=== PATIENT | male | born 1965 | race African-American/Black ===

== ENCOUNTER → 2021-02-20 | Outpatient (CLI) | payer MEDICARE | LOC: COL.RAD 11:59 | DX: N18.32 Chronic kidney disease, stage 3b (principal) ==

== ENCOUNTER 2021-03-21 14:18 | Observation (INO) | payer MEDICARE ==
[~2021-03-21] VITALS: Ht 182.9 cm; Wt 104.7 kg
[2021-03-21 15:27] LABS: BASO % 0.5 % (0.0-2.0); EOS # 0.2 K/mm3 (0.0-0.7); EOS % 2.8 % (0.0-4.0); GRAN # 4.3 K/mm3 (1.4-6.5); GRAN % 57.5 % (42.2-75.2); HEMATOCRIT 39.8 % (42.0-52.0); HEMOGLOBIN 13.4 g/dl (13.5-18.0); LYMPH # 2.3 K/mm3 (1.2-3.4); LYMPH % 29.9 % (20.0-51.0); MEAN CELL VOLUME 89 fl (80.0-100.0); MEAN CORPUSCULAR HEMOGLOBIN 30 pg (27-31); MEAN CORPUSCULAR HGB CONC 34 g/dl (33.0-37.0); MEAN PLATELET VOLUME 10.1 fl (7.4-10.4); MONO # 0.7 K/mm3 (0.1-0.6); MONO % 9.2 % (1.7-9.3); PLATELET COUNT 284 K/mm3 (130-400); RED BLOOD COUNT 4.47 M/mm3 (4.20-5.60); REDCELL DISTRIBUTION WIDTH-CV 13.2 % (11.5-14.5)
[2021-03-21 15:30] LABS: COLLECTION METHOD CLEAN CATCH
[2021-03-21 15:38] LABS: PH 5 (5-8); SQUAMOUS EPITHELIAL 0-2 /hpf (0-10); URINE APPEARANCE Clear (CLEAR/HAZY); URINE BACTERIA None Seen /hpf (NONE SEEN); URINE BILIRUBIN Negative (NEGATIVE); URINE BLOOD Negative (NEGATIVE); URINE COLOR Straw (YELLOW); URINE GLUCOSE 3+ (NEGATIVE); URINE KETONE Negative (NEGATIVE); URINE LEUKOCYTE ESTERASE Negative (NEGATIVE); URINE NITRATE Negative (NEGATIVE); URINE PROTEIN(semi-quant) Negative (NEGATIVE); URINE RBC 0-2 /hpf (0-2); URINE UROBILINOGEN Negative (NEGATIVE)
[2021-03-21 15:45] LABS: ALBUMIN 3.7 gm/dL (3.5-5.0); BILIRUBIN,TOTAL 0.4 mg/dL (0.2-1.2); CALCIUM 9.2 mg/dL (8.4-10.2); CREATININE, serum 1.58 mg/dL (0.72-1.25); POTASSIUM 3.7 mmol/L (3.5-4.5); TOTAL PROTEIN 7.5 gm/dL (6.2-8.1)
[2021-03-21 16:05] LABS: TSH w REFLEX 2.058 uIU/mL (0.350-4.940)
[2021-03-21 16:17] LABS: INR 1.1 (0.8-3.0); PROTHROMBIN TIME 12.4 SECONDS (9.7-12.8)
[2021-03-21 16:20] LABS: PARTIAL THROMBOPLASTIN TIME 31.5 SECONDS (26.0-37.0)
[2021-03-21] MEDS ORDERED: TAPAZOLE10 MG PO (22:22)
[2021-03-21] MEDS ORDERED: AMARYL4 MG PO (22:22)
[2021-03-21] MEDS ORDERED: FARXIGA10 PO (22:22)
[2021-03-21] MEDS ORDERED: LIPITOR 10MG10 MG PO (22:23)
[2021-03-21] MEDS ORDERED: NORVASC 5MG5 MG/TAB PO (22:23)
[2021-03-21] MEDS ORDERED: ZESTRIL40 MG PO (22:23)
[2021-03-21] MEDS ORDERED: HYGROTON 2525 MG/TAB PO (22:23)
[2021-03-22] VITALS (9 sets, daily range): BP systolic 105–119; BP diastolic 64–81; PULSE 68–109; TEMP 97.4–98.4
--- NOTE | 2021-03-22 01:10 | NUR ---
Pt. arrived to the floor via wheelchair. Pt. is A&OX3, assessment complete. INT to lt. forarm and rt. ac patent. Pt. denies pain at this time. Call light within reach.
[2021-03-22 06:20] LABS: BASO % 0.7 % (0.0-2.0); EOS # 0.1 K/mm3 (0.0-0.7); EOS % 2.3 % (0.0-4.0); GRAN # 3.5 K/mm3 (1.4-6.5); GRAN % 57.4 % (42.2-75.2); HEMATOCRIT 38.8 % (42.0-52.0); LYMPH # 1.9 K/mm3 (1.2-3.4); LYMPH % 30.8 % (20.0-51.0); MEAN CELL VOLUME 91 fl (80.0-100.0); MEAN CORPUSCULAR HEMOGLOBIN 30 pg (27-31); MEAN CORPUSCULAR HGB CONC 34 g/dl (33.0-37.0); MEAN PLATELET VOLUME 10.5 fl (7.4-10.4); MONO # 0.5 K/mm3 (0.1-0.6); MONO % 8.5 % (1.7-9.3); PLATELET COUNT 260 K/mm3 (130-400); RED BLOOD COUNT 4.28 M/mm3 (4.20-5.60); REDCELL DISTRIBUTION WIDTH-CV 13.2 % (11.5-14.5)
[2021-03-22 06:39] LABS: CALCIUM 8.8 mg/dL (8.4-10.2); CREATININE, serum 1.31 mg/dL (0.72-1.25); POTASSIUM 3.5 mmol/L (3.5-4.5)
--- NOTE | 2021-03-22 07:00 | NUR ---
Report rceived from ANTONIA Salcido. Pt in bed resting with eyes closed, denies needs, will continue to monitor.
--- NOTE | 2021-03-22 09:00 | NUR ---
Assessment charted. Pt is alert and oriented, resting in bed, answering all questions appropriately and denies any pain. IVF to LFA, INT to RFA. Will continue to monitor.
--- NOTE | 2021-03-22 09:51 | NUR ---
Initial visit; Patient thanked General Manager for looking in on him and offering Merry Primitivo and God's blessings.
--- NOTE | 2021-03-22 12:58 | NUR ---
SW met with the patient and his sister, Lita (ph#[phone]), to discuss discharge plan. The patient lives in [place] and rotates living with his other three sisters: Ruthann, Soledad, and Sonia. Lita lives in [place]. The patient's sisters help him with his care. The patient's PCP is Dr. Taye Tejeda at the [facility] in [place]. The patient has a history of a TBI and has an intellectual disability disorder. Lita reports that her and her sisters have been working on getting the patient an IDD waiver and the IDD Crisis Exception to get him services in the home. These services would be similiar to services that [facility] and [facility] provide. She reports that their end game is to get the patient transitioned into a halfway for developmental disabilities in [place], [place]. Lita provided SW with a copy of the patient's Co-Guardians and Co-Conservators paperwork. The patient's co-guardians and co-conservators are his sisters: Soledadstefan Grimes (ph#[phone]) and Ruthann Ibarra (ph#[phone]). SW placed the copy in the patient's chart. The patient has a frontal parietal subdural hemorrhage. Lita reports that they would like for the patient to get transferred to a hospital that has a neurosurgeon. Awaiting decision on this. OT recommends home with sisters. Lita requests that SW write a letter to help further along the Crisis Exception Waiver. She provided SW with examples of what the patient's PCP and his social media marketing analyst wrote. SW completed the letter. SW to notify Lita. SW to place the letter on the patient's chart for when Lita returns back up to the hospital. *Discharge plan: Tentative tranfer or home with sisters*
--- NOTE | 2021-03-22 16:48 | NUR ---
Pt left at this time via [facility] for [facility] with all belongings. Pt family called for consent for transfer, verified with 2nd RN. Report called to [facility] unit, family updated with transfer. Criteria met for transfer.
== END 2021-03-22 16:15 | disposition short-term general hospital (02) ==
LOC: COL.ER 14:18 → SURG 03-22 00:36
PROVIDERS: Emergency Medicine; Nurse Practitioner Family; ADMIT Internal Medicine
DX: S06.5X9A Traumatic subdural hemorrhage with loss of consciousness of unspecified duration, initial encounter (principal); R29.6 Repeated falls; E78.5 Hyperlipidemia, unspecified; E03.9 Hypothyroidism, unspecified; E05.00 Thyrotoxicosis with diffuse goiter without thyrotoxic crisis or storm; I12.9 Hypertensive chronic kidney disease with stage 1 through stage 4 chronic kidney disease, or unspecified chronic kidney disease; N17.9 Acute kidney failure, unspecified; N18.9 Chronic kidney disease, unspecified; E11.22 Type 2 diabetes mellitus with diabetic chronic kidney disease; F79 Unspecified intellectual disabilities; Z79.84 Long term (current) use of oral hypoglycemic drugs; Z20.822 Contact with and (suspected) exposure to COVID-19; Z86.73 Personal history of transient ischemic attack (TIA), and cerebral infarction without residual deficits; Z79.899 Other long term (current) drug therapy
CPT/HCPCS: G0378; J7030